=== PATIENT | male | born 2005 | race Two or more races ===

== ENCOUNTER 2023-11-29 10:09 | Emergency (ER) | payer MEDICAID, OTHER ==
[~2023-11-29] VITALS: Ht 170.2 cm; Wt 90.5 kg
[2023-11-29 10:18] VITALS: BP 144/84; PULSE 71; RESP 16; O2SAT 97
== END 2023-11-29 12:38 ==
LOC: ER 10:09
DX: N48.89 Other specified disorders of penis (principal); Z53.21 Procedure and treatment not carried out due to patient leaving prior to being seen by health care provider